=== PATIENT | female | born 1995 | race Caucasian/White ===

== ENCOUNTER 2017-11-12 02:06 | Emergency (ER) | payer SELFPAY ==
[~2017-11-12] VITALS: Ht 157.5 cm; Wt 81.8 kg
[2017-11-12 02:17] VITALS: BP 133/86
== END 2017-11-12 03:30 | disposition left against medical advice (07) ==
LOC: EMS 02:06 → EDBD 02:06 → EMS 03:30
DX: R22.0 Localized swelling, mass and lump, head (principal); Z53.21 Procedure and treatment not carried out due to patient leaving prior to being seen by health care provider
CPT/HCPCS: 99285